=== PATIENT | female | born 1980 | race Caucasian/White ===

== ENCOUNTER 2017-04-09 07:26 | Emergency (ER) | payer BC, OTHER ==
[~2017-04-09 07:26] MED LIST: ALD50 PO; ALDACTONE25 MG; COLACE100 MG PO; NORCO1 TA2 PO; PREPARATION H1 SUP RC; SERTRALINE HYDR50 M1 PO; ZOFRAN ODT4 MG SL; ZOLOFT25 MG
[2017-04-09 08:59] VITALS: BP 100/69
[2017-04-09 08:59] LABS: UA SPECIFIC GRAVITY 1.015 (1.005-1.035); microscopic required? YES; urine erythrocyte 3+ (NEGATIVE)
== END 2017-04-09 08:59 | disposition home or self-care (01) ==
LOC: ED 07:26
PROVIDERS: Emergency Medicine
DX: N39.0 Urinary tract infection, site not specified (principal); J45.909 Unspecified asthma, uncomplicated